=== PATIENT | female | born 1950 | race Caucasian/White ===

== ENCOUNTER → 2023-06-27 06:31 | Day surgery (SDC) | payer MEDICARE, OTHER, SELFPAY | LOC: GI 06:31 | PROVIDERS: ATTENDING PHYSICIAN Internal Medicine Gastroenterology | DX: Z12.11 Encounter for screening for malignant neoplasm of colon (principal); K57.30 Diverticulosis of large intestine without perforation or abscess without bleeding; K64.8 Other hemorrhoids; K21.00 Gastro-esophageal reflux disease with esophagitis, without bleeding; K44.9 Diaphragmatic hernia without obstruction or gangrene; K31.7 Polyp of stomach and duodenum; K31.89 Other diseases of stomach and duodenum; K31.A0 Gastric intestinal metaplasia, unspecified; Z86.010 Personal history of colon polyps | CPT/HCPCS: 43239; G0105; 88305; 88342 ==

== ENCOUNTER → 2023-08-09 11:07 | Outpatient (REF) | payer MEDICARE, OTHER, SELFPAY | LOC: HWWDC 11:07 | PROVIDERS: ATTENDING PHYSICIAN Obstetrics & Gynecology Gynecology; FAMILY PHYSICIAN Family Medicine | DX: Z12.31 Encounter for screening mammogram for malignant neoplasm of breast (principal) | CPT/HCPCS: 77063; 77067 ==

== ENCOUNTER → 2024-02-05 11:59 | Outpatient (REF) | payer MEDICARE, OTHER, SELFPAY | LOC: DHCBC/DCA 11:59 | PROVIDERS: ATTENDING PHYSICIAN Student in an Organized Health Care Education/Training Program; FAMILY PHYSICIAN Family Medicine | DX: R07.9 Chest pain, unspecified (principal) | CPT/HCPCS: 78452; 93017; A9500; J2785 ==

== ENCOUNTER 2024-02-13 07:00 | Inpatient (IN) | payer MEDICARE, OTHER, SELFPAY ==
[2024-01-21 14:08] VITALS: BMI 40.4
[2024-01-21 14:44] LABS: Hematocrit 38.8 % (37.0-47.0); Hemoglobin 12.8 g/dL (12.0-16.0); Mean Corpuscular Hgb 29.3 pg (27.0-31.0); Mean Corpuscular Volume 88.8 fL (81.0-99.0); Mean Platelet Volume 10.7 fL (7.4-10.4); Platelet Count 279 10^3/uL (130-400); Red Blood Cell Count 4.37 10^6/uL (4.20-5.40); White Blood Cell Count 8.3 10^3/uL (4.8-10.8)
[2024-01-21 15:21] LABS: ALT (SGPT) 23 U/L (0-35); AST (SGOT) 28 U/L (14-36); Albumin 4.5 g/dl (3.5-5.0); Alkaline Phosphatase 59 U/L (38-126); Blood Urea Nitrogen 30 mg/dl (7-17); Calcium 10.1 mg/dl (8.4-10.2); Carbon Dioxide 24 mmol/L (22-30); Chloride 104 mmol/L (98-107); Estimated Creatinine Clearance 58 ml/min; Glucose 111 mg/dl (70-99); Potassium 4.2 mmol/L (3.5-5.1); Sodium 142 mmol/L (135-145); Total Bilirubin 0.2 mg/dl (0.2-1.3); Total Protein 6.9 g/dl (6.3-8.2); eGFR > 60.00
[2024-01-22 08:05] LABS: Glycohemoglobin (HgbA1c) 5.2 % (4.0-5.6)
[2024-02-07 12:34] VITALS: BMI 40.4
[2024-02-13] VITALS (17 sets, daily range): BP systolic 98–164; BP diastolic 53–84; PULSE 74; O2SAT 96; BMI 40.4
[2024-02-13] MEDS: CELEBREX 200 MG PO (08:23)
[2024-02-13] MEDS: TYLENOL 650 MG PO ×4 (08:23→21:34)
--- NOTE | 2024-02-13 08:52 | W.PN.ORTHO ---
Today's Communication / Plan
-
D/c when clinically stable.
Assessment
.
Distal Motor Intact: Yes
Dressing:
Clean, dry and intact.
Assessment:
R hip OA s/p Masood GAVIRIA w/ Dr Aguilar 02/13/24
DVT prophylaxis - ASA, b/l venous foot pumps
- Clarified w/ pt: ADR to Naproxen in past (GI upset). Has tolerated Diclofenac previously and Celebrex this AM w/o issue. Did encourage ASA and Celebrex w/ food. Will continue daily PPI therapy to reduce potential GI discomfort.
HTN - + parameters - monitor BP
NSVT/PVCs � monitor on tele
- Continue BB
RLE DVT, 2004, s/p IVC filter and subsequent removal 2015 - given this was an isolated event, will do ASA 325 mg PO daily for blood clot prevention
- Frequent and early ambulation as tolerated
- Plasma flow devices HIGHLY recommended upon d/c
RAUL, untreated - monitor O2
- IS
- Add supplemental O2 therapy HS ����
GERD and Hiatal hernia - continue PPI therapy
Morbidly obese, BMI 40.4; s/p sleeve gastrectomy�2010 - would benefit from prophylactic Cefadroxil upon d/c (will prescribe)
Hypertriglyceridemia
Diverticulosis
IBS
Gastric and colonic polyps��
Multilevel DDD
RA��
Benign thyroid nodule s/p partial thyroidectomy 2015
Post-surgical hypothyroidism
Glaucoma�����
Osteopenia
Plan
.
Surgery / Date: Masood GAVIRIA w/ Dr Aguilar 02/13/24
DVT Prophylaxis: Aspirin
Activity:
Out of bed.
PT/OT
Discharge Plan: Home w/ Outpatient PT
Subjective
.
.:
Patient resting comfortably in her bed.
R hip pain present but currently tolerable.
Denies any new significant complaints.
Vital Signs and Labs
.
Vital Signs and Labs:
Lab Results
01/21/24 13:09
01/21/24 13:09
Temp Pulse Resp BP Pulse Ox
97.7 F 66 16 145/66 98
02/13/24 07:55 02/13/24 07:55 02/13/24 07:55 02/13/24 07:55 02/13/24 07:55
Physical Exam
-
HEENT: No pallor, cyanosis, or jaundice. Throat clear.
NECK: Supple. No JVD.
RESPIRATORY: Lungs clear to auscultation.
CVS: S1, S2 normal. RRR.�
ABDOMEN: Soft, non-tender. No distension. Morbidly obese.
EXTREMITIES: Strength equal, no calf pain with palpation/dorsiflexion. Calves soft.
DIRECTOR OF RESEARCH: AOx3. No focal deficits. tinsmith helper grossly intact
[2024-02-13] MEDS: ROXICODONE 5 MG PO (11:37)
--- NOTE | 2024-02-13 13:01 | PTCARENOTE ---
Telephone report received from SUPERINTENDENT WATER AND SEWER SYSTEMSROCHELLE Mejia, patient arrived in bed @13:01, VSS, admission history obtained from patient.
--- NOTE | 2024-02-13 13:29 | SUR.PHASEI ---
medicated with roxicodone in pacu as ordered, no pain, spinal slow to recede - moving left leg more than right, unable to wiggle right toes and weak plantar and dorsal flexion on right. patient states she has had 'bones removed' from right foot
and toes - does not have good movement of right toes and foot. dressing intact and no pain
[2024-02-13] MEDS: FOLVITE 1 MG PO (13:56)
[2024-02-13] MEDS: VITAMIN D3 (cholecalciferol) 25 MCG PO (13:57)
[2024-02-13] MEDS: NEURONTIN 300 MG PO (13:57)
[2024-02-13] MEDS: NORMOSOL-R/PLASMALYTE-A 1000 IV (13:59)
[2024-02-13] MEDS: TRICOR 145 MG PO (15:35)
[2024-02-13] MEDS: ANCEF 5 IV (17:00)
[2024-02-13] MEDS: ASPIRIN 325 MG PO (17:01)
[2024-02-13] MEDS: NEURONTIN 600 MG PO (17:01)
[2024-02-13] MEDS: COLACE 100 MG PO (19:57)
[2024-02-13] MEDS: BACTROBAN 2% OINTMENT 1 APPLIC NASAL (19:57)
[2024-02-13] MEDS: DECADRON 4 MG PO (19:57)
[2024-02-13] MEDS: NON-FORMULARY ITEM 1 DROP OPHTH (19:57)
[2024-02-13] MEDS: SENOKOT 17.2 MG PO (19:58)
[2024-02-14] MEDS: ROXICODONE 5 MG PO ×2 (00:01→08:25)
[2024-02-14] MEDS: TYLENOL PO (00:04)
[2024-02-14] MEDS: ANCEF 5 IV (01:58)
[2024-02-14 03:27] VITALS: BP 147/78
--- NOTE | 2024-02-14 04:56 | PTCARENOTE ---
This RN received report and assumed care of this patient at 0400.
[2024-02-14] MEDS: TYLENOL 650 MG PO ×3 (05:04→11:22)
[2024-02-14] MEDS: SYNTHROID 125 MCG PO (05:04)
[2024-02-14 06:00] VITALS: BMI 41.0
[2024-02-14 07:25] VITALS: BP 165/83
[2024-02-14] MEDS: COLACE 100 MG PO (08:21)
[2024-02-14] MEDS: CELEBREX 200 MG PO (08:22)
[2024-02-14] MEDS: PROTONIX 40 MG PO (08:22)
[2024-02-14] MEDS: VITAMIN D3 (cholecalciferol) 25 MCG PO (08:23)
[2024-02-14] MEDS: IMDUR (EXTENDED RELEASE) 60 MG PO (08:23)
[2024-02-14] MEDS: ASPIRIN 325 MG PO (08:23)
[2024-02-14] MEDS: TOPROL XL 25 MG PO (08:23)
[2024-02-14] MEDS: DECADRON 4 MG PO (08:23)
[2024-02-14] MEDS: FOLVITE 1 MG PO (08:23)
[2024-02-14] MEDS: BACTROBAN 2% OINTMENT 1 APPLIC NASAL (08:24)
[2024-02-14] MEDS: SENOKOT 17.2 MG PO (08:24)
[2024-02-14] MEDS: NEURONTIN 300 MG PO (08:24)
[2024-02-14] MEDS: TRICOR 145 MG PO (08:45)
[2024-02-14] MEDS: NON-FORMULARY ITEM 1 DROP OPHTH (08:47)
--- NOTE | 2024-02-14 09:30 | W.PN.ORTHO ---
Today's Communication / Plan
-
Await PT and OT recs.
D/c later today if remaining clinically stable.
Assessment
.
Distal Motor Intact: Yes
Dressing:
Clean, dry and intact.
Assessment:
R hip OA s/p Masood GAVIRIA w/ Dr Aguilar 02/13/24
DVT prophylaxis - ASA, b/l venous foot pumps
- Clarified w/ pt: ADR to Naproxen in past (GI upset). Has tolerated Diclofenac previously and Celebrex DOS w/o issue. Did encourage ASA and Celebrex w/ food. Will continue daily PPI therapy to reduce potential GI discomfort.
HTN - + parameters - BPs stable
NSVT/PVCs � maintaining NSR on tele
- Continue BB
RLE DVT, 2004, s/p IVC filter and subsequent removal 2015 - given this was an isolated event, will do ASA 325 mg PO daily for blood clot prevention
- Frequent and early ambulation as tolerated
- Plasma flow devices HIGHLY recommended upon d/c
RAUL, untreated - O2 stable on RA POD 1
- IS
- Added supplemental O2 therapy HS ����
GERD and Hiatal hernia - continue PPI therapy
Morbidly obese, BMI 40.4; s/p sleeve gastrectomy�2010 - would benefit from prophylactic Cefadroxil upon d/c (will prescribe)
Hypertriglyceridemia
Diverticulosis
IBS
Gastric and colonic polyps��
Multilevel DDD
RA��
Benign thyroid nodule s/p partial thyroidectomy 2015
Post-surgical hypothyroidism
Glaucoma�����
Osteopenia
Plan
.
Surgery / Date: Masood GAVIRIA w/ Dr Aguilar 02/13/24
DVT Prophylaxis: Aspirin
Activity:
Out of bed.
PT/OT
Discharge Plan: Home w/ Outpatient PT
Subjective
.
.:
Patient resting comfortably in her chair.
R hip pain well controlled w/ current pain med regimen.
Denies any new significant complaints.
Eager for potential d/c today.
Vital Signs and Labs
.
Vital Signs and Labs:
Lab Results
01/21/24 13:09
01/21/24 13:09
Temp Pulse Resp BP Pulse Ox
97.8 F 80 16 147/78 95
02/14/24 07:25 02/14/24 08:23 02/14/24 07:25 02/14/24 08:23 02/14/24 07:25
Non-invasive Hgb result: 11.4
Physical Exam
-
HEENT: No pallor, cyanosis, or jaundice. Throat clear.
NECK: Supple. No JVD.
RESPIRATORY: Lungs clear to auscultation.
CVS: S1, S2 normal. RRR.�
ABDOMEN: Soft, non-tender. No distension. Morbidly obese.
EXTREMITIES: Strength equal, no calf pain with palpation/dorsiflexion. Calves soft.
RESEARCH METHODS INSTRUCTOR: AOx3. No focal deficits. preschool adviser grossly intact
--- NOTE | 2024-02-14 09:59 | W.DS.TRANS ---
DC Summary - Hog Scalder
-
Discharge Instructions:
Discharge Diagnosis/Procedures R hip OA s/p R KHADRA w/ Dr Aguilar 02/13/24
Diet Other diet
Additional Diets Diabetic carb controlled x1 week for wound
healing/infection prevention
Activity As tolerated,With Walker
Driving Restrictions Not until seen by your Dr
Bathing Restrictions OK to Shower
Other Services PT
Wound Care Dressing to be removed 1 week post-surgery
Instructions:
Stand-Alone Forms: Total Hip/Knee Replacement D/C
Changes to Home Medications: Yes
Discharge Medications:
DC Medications w/original date entered in [facility]
calcium citrate 200 mg PO DAILY 05/29/11
folic acid 1 mg tablet 1 mg PO DAILY 05/29/11
ascorbic acid (vitamin C) 500 mg tablet (Vitamin C) 500 mg PO DAILY 02/07/24
biotin 1 tab PO DAILY 02/07/24
cholecalciferol (vitamin D3) 25 mcg (1,000 unit) capsule (Vitamin D3) 25 mcg PO DAILY 02/07/24
collagen 1 tab PO DAILY 02/07/24
fenofibrate 120 mg tablet 120 mg PO DAILY 02/07/24
gabapentin 300 mg capsule 300 mg PO DAILY 02/07/24
gabapentin 300 mg capsule 600 mg PO QPM 02/07/24
glucosamine 750 [id number] no1 644 mg-C 30 mg-barb 1 mg tablet (Osteo Bi-Flex Triple Strength) 1 tab PO BID 02/07/24
levothyroxine 125 mcg tablet 125 mcg PO DAILY 02/07/24
light mineral oil-mineral oil (PF) 0.5 %-0.5 % eye drops,dropperette (Retaine MGD (PF)) 1 drp ophthalmic (eye) QID 02/07/24
magnesium glycinate 480 mg PO HS 02/07/24
menthol 0.15 % topical powder (Gold Martinez Original Strength) 1 applic topical Daily 02/07/24
metoprolol succinate 25 mg tablet,extended release 24 hr 25 mg PO DAILY 02/07/24
omeprazole 20 mg capsule,delayed release 20 mg PO DAILY 02/07/24
prednisolone sod phos 1 %-moxifloxacin 0.5 %-bromfen 0.075 % eye drops 1 drp ophthalmic (eye) BID 02/07/24
turmeric 400 mg capsule 400 mg PO DAILY 02/07/24
zinc acetate 50 mg (zinc) capsule 50 mg PO DAILY 02/07/24
Saccharomyces boulardii 250 mg capsule (Florastor) 250 mg PO BID #14 caps 02/13/24
acetaminophen 500 mg tablet 1,000 mg (2 x 500 mg) PO Q6H #60 tabs 02/13/24
amlodipine 10 mg tablet 10 mg PO DAILY #1 tab 02/13/24
aspirin 325 mg tablet 325 mg PO DAILY #30 tabs 02/13/24
cefadroxil 500 mg capsule 500 mg PO BID #14 caps 02/13/24
celecoxib 100 mg capsule (Celebrex) 100 mg PO BID #30 caps 02/13/24
dexamethasone 4 mg tablet 4 mg PO Q12H Anti-inflammatory #7 tabs 02/13/24
docusate sodium 100 mg capsule 100 mg PO BID #30 caps 02/13/24
isosorbide mononitrate 60 mg tablet,extended release 24 hr 60 mg PO DAILY #1 tab 02/13/24
mupirocin 2 % topical ointment 1 applic topical BID 02/13/24
ondansetron HCl 4 mg tablet 4 mg PO Q6H PRN nausea and vomiting #30 tabs 02/13/24
oxycodone 5 mg tablet 5 - 10 mg (1 - 2 x 5 mg) PO Q6H PRN moderate-severe pain #30 tabs 02/13/24
sennosides 8.6 mg tablet (Senna Laxative) 17.2 mg (2 x 8.6 mg) PO BID #30 tabs 02/13/24
Home Medication Changes
Saccharomyces boulardii 250 mg capsule (Florastor) 250 mg PO BID #14 caps 02/13/24
acetaminophen 500 mg tablet 1,000 mg (2 x 500 mg) PO Q6H #60 tabs 02/13/24
aspirin 325 mg tablet 325 mg PO DAILY #30 tabs 02/13/24
cefadroxil 500 mg capsule 500 mg PO BID #14 caps 02/13/24
celecoxib 100 mg capsule (Celebrex) 100 mg PO BID #30 caps 02/13/24
dexamethasone 4 mg tablet 4 mg PO Q12H Anti-inflammatory #7 tabs 02/13/24
docusate sodium 100 mg capsule 100 mg PO BID #30 caps 02/13/24
ondansetron HCl 4 mg tablet 4 mg PO Q6H PRN nausea and vomiting #30 tabs 02/13/24
oxycodone 5 mg tablet 5 - 10 mg (1 - 2 x 5 mg) PO Q6H PRN moderate-severe pain #30 tabs 02/13/24
sennosides 8.6 mg tablet (Senna Laxative) 17.2 mg (2 x 8.6 mg) PO BID #30 tabs 02/13/24
Pending Results: No
--- NOTE | 2024-02-14 10:08 | CM ---
Patient seen at bedside with OT present. Patient has all recommended DME at home 2 walkers, 2 canes and commode. Patient has appointment for outpatient PT/OT and surgery appointment. Patient stated that she lives in 2 story home with PCP Dr. Diaz
[facility]. Patient stated that she is eager to go home and has no concerns at this time. Patient has been in contact with and he is in agreement with plan for discharge. CM will continue to follow for discharge planning
needs.
Plan; home with physician.
[2024-02-14 10:21] VITALS: BP 115/74; PULSE 66
[2024-02-14 11:28] VITALS: BP 142/73; PULSE 63; O2SAT 98
[2024-02-14 11:30] VITALS: BP 125/62
== END 2024-02-14 13:50 | disposition home or self-care (01) | DRG 470 ==
LOC: 2 SOUTH 07:00
PROVIDERS: ADMITTING PHYSICIAN Orthopaedic Surgery; FAMILY PHYSICIAN Family Medicine; REFERRING PHYSICIAN Internal Medicine
PROC: 0SR903A Replacement of Right Hip Joint with Ceramic Synthetic Substitute, Uncemented, Open Approach (ICD-10-PCS; 2024-02-13)
DX: M16.11 Unilateral primary osteoarthritis, right hip (principal); Z68.41 Body mass index [BMI] 40.0-44.9, adult; I47.20 Ventricular tachycardia, unspecified; E66.01 Morbid (severe) obesity due to excess calories; I10 Essential (primary) hypertension; G47.33 Obstructive sleep apnea (adult) (pediatric); K21.9 Gastro-esophageal reflux disease without esophagitis; K57.90 Diverticulosis of intestine, part unspecified, without perforation or abscess without bleeding; I49.3 Ventricular premature depolarization
CPT/HCPCS: 36415; 73502; 80053; 83036; 85027; 87070; 97110; 97116; 97162; 97166; 97530; 97535; C1776

== ENCOUNTER 2024-03-12 12:52 | Outpatient (RCR) | payer MEDICARE, OTHER, SELFPAY | END 2024-03-12 23:59 | disposition home or self-care (01) | LOC: RPT 12:52 | PROVIDERS: ATTENDING PHYSICIAN Orthopaedic Surgery; FAMILY PHYSICIAN Family Medicine | DX: M16.11 Unilateral primary osteoarthritis, right hip (principal); Z73.6 Limitation of activities due to disability | CPT/HCPCS: 97010; 97110; 97163; 97530 ==

== ENCOUNTER 2024-04-04 13:57 | Outpatient (RCR) | payer MEDICARE, OTHER, SELFPAY | END 2024-04-07 06:34 | disposition home or self-care (01) | LOC: RPT 13:57 | PROVIDERS: ATTENDING PHYSICIAN Orthopaedic Surgery; FAMILY PHYSICIAN Family Medicine | DX: M16.11 Unilateral primary osteoarthritis, right hip (principal); Z73.6 Limitation of activities due to disability | CPT/HCPCS: 97010; 97110; 97140; 97530 ==

== ENCOUNTER → 2024-08-12 12:46 | Outpatient (REF) | payer MEDICARE, OTHER, SELFPAY | LOC: HWRAD 12:46 | PROVIDERS: ATTENDING PHYSICIAN Obstetrics & Gynecology Gynecology; FAMILY PHYSICIAN Family Medicine | DX: M85.80 Other specified disorders of bone density and structure, unspecified site (principal); Z12.31 Encounter for screening mammogram for malignant neoplasm of breast; Z78.0 Asymptomatic menopausal state | CPT/HCPCS: 77063; 77067; 77080 ==

== ENCOUNTER → 2025-01-10 13:16 | Outpatient (REF) | payer MEDICARE, OTHER, SELFPAY | LOC: PAVMRI 13:16 | PROVIDERS: ATTENDING PHYSICIAN Physical Medicine & Rehabilitation; FAMILY PHYSICIAN Family Medicine | DX: M48.062 Spinal stenosis, lumbar region with neurogenic claudication (principal) | CPT/HCPCS: 72148 ==

== ENCOUNTER 2025-01-29 06:29 | Day surgery (SDC) | payer MEDICARE, OTHER, SELFPAY | END 2025-01-29 11:21 | disposition home or self-care (01) | LOC: GI 06:29 | PROVIDERS: ATTENDING PHYSICIAN Internal Medicine Gastroenterology | DX: K21.9 Gastro-esophageal reflux disease without esophagitis (principal); K31.7 Polyp of stomach and duodenum; K44.9 Diaphragmatic hernia without obstruction or gangrene; K29.70 Gastritis, unspecified, without bleeding; R89.7 Abnormal histological findings in specimens from other organs, systems and tissues | CPT/HCPCS: 43239; 88305 ==

== ENCOUNTER → 2025-02-03 12:33 | Outpatient (REF) | payer MEDICARE, OTHER, SELFPAY | LOC: RCS 12:33 | PROVIDERS: ATTENDING PHYSICIAN Internal Medicine; FAMILY PHYSICIAN Family Medicine | DX: I10 Essential (primary) hypertension (principal); I35.8 Other nonrheumatic aortic valve disorders | CPT/HCPCS: 93306 ==